=== PATIENT | male | born 1975 | race Caucasian/White ===

== ENCOUNTER 2018-08-13 18:40 | Emergency (ER) | payer MEDICARE ==
[~2018-08-13] VITALS: Ht 175.3 cm; Wt 65.3 kg
[2018-08-13 21:09] VITALS: BP 122/79
--- OUTSIDE RECORDS SUMMARY | 2018-08-18 13:14 | XMS REPORT ---
Author Author [facility] Address Unknown Phone Unavailable Care Team Providers Care Fuse Assembler Name Role Phone JENNIFER TONY Unavailable Unavailable Problems This patient has no known problems. Allergies, Adverse Reactions, Alerts This patient has no known allergies or adverse reactions. Medications This patient has no known medications. Results Test Description Test Time Test Comments Text Results Atomic Results Result Comments CT, CTA ABDOMEN 2017-09-15 17:44:00 Reason for Exam:->assess iliac vessels Addendum BeginsREPORT STATUS:A Addendum: September 15, 2017 at 1745 hours I have reviewed the CT images for this study and I concur with the nonvascular imaging findings as dictated. Signed: Danny Luevano MDRepkate Verified Date/Time: 09/15/2017 17:44:11 Reading Location: [place] [address] Angio Body Reading RoomAddendum EndsFINAL REPORT CT angiography of the abdominal aorta and pelvic arteries, 15 September 2017 INDICATION: This is a 41 year old male with end-stage renal disease presents for pretransplant assessment. This study is performed in an attempt to avoid an invasive procedure. TECHNIQUE: Spiral acquisition before and during intravenous contrast administration using a Meche multidetector CT scanner. Images were obtained before and during the dynamic passage of intravenous contrast material. Multi- planar 3-D volume-rendering reconstruction was performed using an independent workstation interactively by the interpreting physician as well as the 3-D specialist for optimal visualisation of the abdominal aorta, pelvic arteries, and its proximal branches. Please refer to the contrast sheet scanned in the EPIC system for the amount and route of contrast given. This exam was performed according to our departmental dose-optimisation programme, which includes automated exposure control, adjustment of the mA and/or kV according to patient size and/or use of iterative reconstruction technique. Dose modulation, iterative reconstruction, and/or weight based adjustment of the mA/kV was utilized to reduce the radiation dose to as low as reasonably achievable. FINDINGS: VASCULAR: Coronary artery calcification is identified in the distal RCA, where visualised. The abdominal aorta is normal in course, calibre and contour. Minimal focal calcific atherosclerosis is identified. No aneurysmal dilation is seen. There is no evidence of acute aortic pathology, specifically, there is no dissection, intramural hematoma, or contained rupture. Quantitative dimensions of the abdominal aorta are as follows: 1.9 cm at the mesenteric segment; 1.7 cm at the renal segment,; and 1.5 cm at the aortic bifurcation. The common iliac, external iliac, common femoral, and the visualized superficial femoral arteries, bilaterally, are widely patent, with no obvious calcific atherosclerosis identified. Manager Of Case dimensions of the left and the right external iliac arteries are 6 and 6 mm, respectively. Similarly, the associated pelvic veins are patent with no venous thrombosis identified. Manager Of Case dimensions of the left and the right external iliac veins are 7 and 6 mm, respectively. The vein appears to be somewhat small in size, that could be due to the effect of the distended bladder. No stenosis is seen and no venous thrombosis is identified. There are single left and right renal arteries that are widely patent. The coeliac axis, SMA, and TUSHAR are widely patent. There single left and right renal veins that drain normally into inferior vena cava. NON-VASCULAR: The lung bases are unremarkable. No pleural effusion is identified. In the abdomen, the liver and spleen appears unremarkable. The liver edge is smooth. No abnormal enhancing structure is identified. The gallbladder appears unremarkable. The adrenal glands are not enlarged. The pancreas have no gross abnormality identified. Patient has end-stage renal disease status. No hydronephrosis or perirenal fluid collection is seen. Renal vascular calcification is identified in both renal pelvis. Bowel is not well assessed by CT angiography as enteric contrast is not given. No obvious bowel dilation is identified. The prostate is prominent. The bladder appears to be somewhat distended. No free air free fluid seen in the abdomen and pelvis. No significant retroperitoneal adenopathy is identified. Some scattered para-aortic and mesenteric lymph nodes are seen, , that are small in size, considered nonspecific in nature. Some superficial venous collaterals are seen, subcutaneously, for example in the right-sided of the abdomen suggesting a degree of venous obstruction, more superiorly, incompletely assessed. There is no significant retroperitoneal adenopathy. No acute bony pathology is identif ied. CONCLUSIONS: 1. The abdominal aorta is normal in course, calibre and contour. There is no evidence of acute aortic pathology, specifically, there is no dissection, intramural hematoma, or contained rupture. Quantitative dimension of the abdominal aorta are as noted. The pelvic arteries and veins are widely patent with no arterial stenosis or venous thrombosis identified. Manager Of Case dimensions of the left and the right external iliac arteries and veins are as described above. 2. Patent mesenteric and renal arteries. 3. Other findings as described above. 4. An addendum will be dictated regarding the non-vascular findings by the [employer] Director Radiologist. Signed: Jesse Gabrieleport Verified Date/Time: 09/15/2017 15:12:38 Reading Location: [place] [address] Cardiology MRI LT BLOOD, STOOL 2017-06-17 21:29:00 FECAL OCCULT BLOOD (BEAKER) (test ehtj=564) Negative Negative FLOW PRA CLASS I AND [id number] 07:19:00* Test Item Value Reference Range Comments DATE OF SERUM (BEAKER) (test eggi=8237) 201821 SERUM # (BEAKER) (test mygk=9707) [id number] FLOW PRA CLASS I AND II (test cxip=0324) See Scanned Report HLA [id number] 12:13:00* Test Item Value Reference Range Comments HLA RESULT (BEAKER) (test vuzp=2633) See Scanned Report HLA-A AG1 (BEAKER) (test pach=6600) HLA-A AG2 (BEAKER) (test imeb=1862) HLA-B AG1 (BEAKER) (test rkfc=4483) HLA-B AG2 (BEAKER) (test eopt=4377) HLA-C AG1 (BEAKER) (test yhcv=4378) HLA-C AG2 (BEAKER) (test yeaf=3584) HLA-DR AG1 (BEAKER) (test basu=8483) HLA-DR AG2 (BEAKER) (test xbbr=6170) HLA-DQ AG1 (BEAKER) (test krbl=9914) HLA-DQ AG2 (BEAKER) (test wmuu=7317) HLA-DRW (BEAKER) (test wmjx=4816) CYTOMEGALOVIRUS ANTIBODY, [id number] 01:35:00* Test Item Value Reference Range Comments CYTOMEGALOVIRUS IGG ANTIBODY (BEAKER) (test cvtc=414) Positive CYTOMEGALOVIRUS ANTIBODY, [id number] 01:35:00* Test Item Value Reference Range Comments CYTOMEGALOVIRUS IGM ANTIBODY (BEAKER) (test feam=070) Negative EBV-VCA ANTIBODY, [id number] 01:35:00* Test Item Value Reference Range Comments RUSSELL-MORILLO VCA IGG (BEAKER) (test eefs=829) Positive EBV-VCA ANTIBODY, [id number] 01:35:00* Test Item Value Reference Range Comments RUSSELL-MORILLO VCA IGM (BEAKER) (test thvr=493) Negative VARICELLA ZOSTER ANTIBODY, [id number] 01:13:00* Test Item Value Reference Range Comments VARICELLA ZOSTER IGG (AL) (BEAKER) (test zmge=1546) 3.8 Al VARICELLA ZOSTER RESULT INTERPRETATIONS: <=0.8 Al Nonreactive: Presumed non-immune to VZV 0.9-1.0 Al Equivocal >=1.1 Al Reactive: Presumed immune to [id number] 02:36:00* Test Item Value Reference Range Comments RPR SCREEN (BEAKER) (test xxud=028) Nonreactive Nonreactive HEMOGLOBIN [id number] 15:05:00* Test Item Value Reference Range Comments HEMOGLOBIN A1C (BEAKER) (test sjfp=315) 7.0 % 4.3-6.1 HEPATITIS B SURFACE [id number] 11:40:00* Test Item Value Reference Range Comments HEPATITIS B SURFACE ANTIBODY (BEAKER) (test mjnn=663) < mIU/mL <8.0 HEPATITIS B SURFACE [id number] 11:33:00* Test Item Value Reference Range Comments HEPATITIS B SURFACE ANTIGEN (2) (BEAKER) (test quyh=3042) Nonreactive Nonreactive HEPATITIS B CORE ANTIBODY, [id number] 11:33:00* Test Item Value Reference Range Comments HEPATITIS B CORE IGM ANTIBODY (BEAKER) (test dtua=197) Nonreactive Nonreactive HEPATITIS C [id number] 11:33:00* Test Item Value Reference Range Comments HEPATITIS C ANTIBODY (BEAKER) (test kdib=341) Nonreactive Nonreactive HIV-1 ANTIGEN WITH HIV-1/2 [id number] 11:33:00* Test Item Value Reference Range Comments HIV-1 ANTIGEN WITH HIV 1\T\2 ANTIBODY (2) (BEAKER) (test ogjj=4940) Nonreactive Nonreactive COMPREHENSIVE METABOLIC [id number] 11:22:00* Test Item Value Reference Range Comments TOTAL PROTEIN (BEAKER) (test yzah=285) 7.7 gm/dL 6.0-8.3 ALBUMIN (BEAKER) (test rxgd=7875) 4.7 g/dL 3.5-5.0 ALKALINE PHOSPHATASE (BEAKER) (test yzyj=012) 73 U/L 40-150 BILIRUBIN TOTAL (BEAKER) (test xdos=233) 0.7 mg/dL 0.2-1.2 SODIUM (BEAKER) (test dhxw=979) 138 meq/L 136-145 POTASSIUM (BEAKER) (test xpkz=173) 4.4 meq/L 3.5-5.1 CHLORIDE (BEAKER) (test zrjk=833) 97 meq/L 98-107 CO2 (BEAKER) (test gkld=635) 30 meq/L 22-29 BLOOD UREA NITROGEN (BEAKER) (test cpbo=574) 39 mg/dL 7-21 CREATININE (BEAKER) (test nmbg=187) 7.46 mg/dL 0.57-1.25 GLUCOSE RANDOM (BEAKER) (test lovm=552) 123 mg/dL 70-105 CALCIUM (BEAKER) (test zrbw=351) 9.0 mg/dL 8.4-10.2 AST (SGOT) (BEAKER) (test fntr=946) 15 U/L 5-34 ALT (SGPT) (BEAKER) (test voqi=925) 9 U/L 6-55 EGFR (BEAKER) (test wngi=3875) 8 mL/min/1.73 sq m ESTIMATED GFR IS NOT ACCURATE CREATININE CLEARANCE IN PREDICTING GLOMERULAR FILTRATION RATE. ESTIMATED GFR IS NOT APPLICABLE FOR DIALYSIS PATIENTS. URIC [id number] 11:18:00* Test Item Value Reference Range Comments URIC ACID (BEAKER) (test stpo=185) 4.1 mg/dL 2.6-7.2 [id number] 11:18:00* Test Item Value Reference Range Comments PHOSPHORUS (BEAKER) (test mpwg=170) 5.1 mg/dL 2.3-4.7 LIPID [id number] 11:18:00* Test Item Value Reference Range Comments TRIGLYCERIDES (BEAKER) (test sjai=451) 122 mg/dL CHOLESTEROL (BEAKER) (test bsun=386) 217 mg/dL HDL CHOLESTEROL (BEAKER) (test zwyr=477) 48 mg/dL LDL CHOLESTEROL CALCULATED (BEAKER) (test weeo=107) 145 mg/dL Triglyceride Reference Range: Low Risk <150 Borderline 150-199 High Risk 200-499 Very High Risk >=500Cholesterol Reference Range: Low Risk <200 Borderline 200-239 High Risk >240HDL Cholesterol Reference Range: Low Risk >=60 High Risk <40LDL Cholesterol Reference Range: Optimal <100 Near Optimal 100-129 Borderline 130-159 High 160-189 Very High >=190 GAMMA GLUTAMYL TRANSFERASE (GGT)2017-05-28 11:18:00* Test Item Value Reference Range Comments GAMMA GLUTAMYL TRANSFERASE (CROWAKER) (test oztp=351) 12 U/L 9-64 LACTATE DEHYDROGENASE (LDH)2017-05-28 11:18:00* Test Item Value Reference Range Comments LACTATE DEHYDROGENASE (CROWAKER) (test fsqn=739) 214 U/L 125-220 PTH, [id number] 11:12:00* Test Item Value Reference Range Comments PARATHYROID HORMONE INTACT (CROWAKER) (test xvob=115) 202.4 pg/mL 8.5-72.5 Effective 09/20/2014: Reference Range ChangeNew: 8.5-72.5 Previous: 15.0-90.0 [id number] 10:53:00* Test Item Value Reference Range Comments PROTIME (BEAKER) (test wcdx=063) 14.0 seconds 11.7-14.7 INR (BEAKER) (test ouvq=195) 1.1 <=5.9 PARTIAL THROMBOPLASTIN TIME (BEAKER) (test xyhp=173) 32.0 seconds 22.5-36.0 RECOMMENDED COUMADIN/WARFARIN INR THERAPY RANGESSTANDARD DOSE: 2.0 - 3.0 Inclu [place]: PROPHYLAXIS for venous thrombosis, systemic embolization; TREATMENT for brandt ous thrombosis and/or pulmonary embolus.HIGH RISK: Target INR is 2.5-3.5 for pat ients with mechanical heart valves.CBC W/PLT COUNT & AUTO [id number] 10:50:00* Test Item Value Reference Range Comments WHITE BLOOD CELL COUNT (BEAKER) (test ynxg=735) 6.8 K/ L 3.5-10.5 RED BLOOD CELL COUNT (BEAKER) (test vads=211) 3.63 M/ L 4.63-6.08 HEMOGLOBIN (BEAKER) (test vqwp=252) 11.7 GM/DL 13.7-17.5 HEMATOCRIT (BEAKER) (test skdi=816) 35.9 % 40.1-51.0 MEAN CORPUSCULAR VOLUME (BEAKER) (test oslh=784) 98.9 fL 79.0-92.2 MEAN CORPUSCULAR HEMOGLOBIN (BEAKER) (test vfyz=465) 32.2 pg 25.7-32.2 MEAN CORPUSCULAR HEMOGLOBIN CONC (BEAKER) (test djlk=916) 32.6 GM/DL 32.3-36.5 RED CELL DISTRIBUTION WIDTH (BEAKER) (test trgx=115) 13.8 % 11.6-14.4 PLATELET COUNT (BEAKER) (test jwcg=039) 170 K/CU MM 150-450 MEAN PLATELET VOLUME (BEAKER) (test xebo=923) 12.6 fL 9.4-12.4 NUCLEATED RED BLOOD CELLS (BEAKER) (test ylpm=595) 0 /100 WBC 0-0 NEUTROPHILS RELATIVE PERCENT (BEAKER) (test aurg=232) 57 % LYMPHOCYTES RELATIVE PERCENT (BEAKER) (test wvql=494) 31 % MONOCYTES RELATIVE PERCENT (BEAKER) (test btns=567) 8 % EOSINOPHILS RELATIVE PERCENT (BEAKER) (test ovsp=473) 4 % BASOPHILS RELATIVE PERCENT (BEAKER) (test hytf=865) 1 % NEUTROPHILS ABSOLUTE COUNT (BEAKER) (test wwdc=953) 3.84 K/ L 1.78-5.38 LYMPHOCYTES ABSOLUTE COUNT (BEAKER) (test eyey=543) 2.08 K/ L 1.32-3.57 MONOCYTES ABSOLUTE COUNT (BEAKER) (test kbjx=216) 0.51 K/ L 0.30-0.82 EOSINOPHILS ABSOLUTE COUNT (BEAKER) (test zmcn=899) 0.28 K/ L 0.04-0.54 BASOPHILS ABSOLUTE COUNT (BEAKER) (test lfwy=751) 0.05 K/ L 0.01-0.08 IMMATURE GRANULOCYTES-RELATIVE PERCENT (JOHN PAUL) (test gyaj=6054) 0 % 0-1
--- OUTSIDE RECORDS SUMMARY | 2018-08-18 13:14 | XMS REPORT | Clinical Summary ---
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 Disp. Refills Start End Date Status Date sevelamer (RENVELA) 800 Take 800 mg by mouth 3 Active mg tablet (three) times daily with meals 3 tabs with meals.. atorvastatin (LIPITOR) 20 Take 40 mg by mouth daily Active MG tablet . amLODIPine (NORVASC) 10 Take 10 mg by mouth Active MG tablet daily. aspirin 81 MG EC tablet Take 81 mg by mouth Active daily. insulin aspart (NOVOLOG) Inject 6 Units Active 100 unit/mL injection subcutaneously 2 (two) times daily before meals VIA PUMP . carvedilol (COREG) 12.5 Take 12.5 mg by mouth 2 Active MG tablet (two) times daily with breakfast and dinner. escitalopram oxalate Take 30 mg by mouth daily Active (LEXAPRO) 10 MG tablet . lisinopril Take 10 mg by mouth Active (PRINIVIL,ZESTRIL) 10 MG daily. tablet insulin detemir (LEVEMIR) Inject 10 Units Active 100 unit/mL injection subcutaneously nightly. melatonin 3 mg Tab tablet Take 3 mg by mouth Active nightly. multivitamin with Take 1 tablet by mouth 10/21/20 Discontin minerals tablet daily. 17 ued Active Problems Problem Noted Date Stroke (HCC) 10/21/2017 Last Assessment & Plan: Stroke x 2 - the first one associated with a seizure and loss of consciousness, and the second one with left hemiparesis a day after bypass surgery. He will need neurology clearance prior to transplant. Diabetic nephropathy associated with type 2 diabetes mellitus (HCC) 06/25/2017 Last Assessment & Plan: Continue follow up with primary care for management and tight glucose control. Essential hypertension 06/25/2017 Last Assessment & Plan: Continue follow up with nephrology for adjustments. Coronary artery disease involving lovelock coronary artery of lovelock heart 06/25/2017 without angina pectoris S/P CABG x 2 06/25/2017 H/O: stroke with residual effects 06/25/2017 Proliferative diabetic retinopathy of both eyes without macular edema 06/25/2017 associated with type 2 diabetes mellitus (HCC) H/O tonic-clonic seizures 06/25/2017 Hyperlipidemia, unspecified hyperlipidemia type 06/25/2017 ESRD (end stage renal disease) on dialysis (HCC) 04/29/2017 Pre-transplant evaluation for chronic kidney disease 04/29/2017 Last Assessment & Plan: He is an acceptable candidate for kidney transplant pending necessary imaging/testing prior to transplant. Hypertensive renal disease 04/29/2017 Encounters Date Type Specialty Care Team Description 12/19/2017 [facility] Charge Transplant Prasad Syed Visit MD Todd Provider, [facility] Registry Generic 12/19/2017 Orders Only Transplant Kalyn Garza RN Patient awaiting renal transplant (Primary Dx) 12/19/2017 Documentation Transplant Kasey Johnson RN 12/18/2017 Abstract Transplant Elizabeth Estrada RN 12/18/2017 Documentation Transplant Elizabeth Estrada RN 12/15/2017 Documentation Transplant Elizabeth Estrada RN 11/12/2017 Telephone Transplant Elizabeth Estrada RN Kidney Transplant Pre-evaluation 10/21/2017 Evaluation Transplant Prasad Syed Pre-transplant evaluation MD Todd for chronic kidney Yaniv Murillo Aba, disease (Primary MD Dx);Diabetic nephropathy associated with type 2 diabetes mellitus (HCC);Essential hypertension 10/21/2017 Telephone Transplant Elizabeth Estrada RN Kidney Transplant Pre-evaluation 10/08/2017 Telephone Transplant Emma Benjamin Appointment (Unable to leave a message for the patient to call back about his surgeon appt on 10/21/17 he has no voicemail. Called his sister Yumiko and she' s aware of the appt date and per Yumiko she will inform the patient about the appt. ); Appointment (Spoke with Veronica at the hd unit and per Veronica she will give the pt his itinerary once she receives the fax. The itinerary has been faxed to the hd unit and mailed to the patient) 09/15/2017 Hospital Radiology Prasad Syed Pre-transplant evaluation Encounter MD Todd for chronic kidney disease;ESRD (end stage renal disease) on dialysis (HCC);Coronary artery disease involving lovelock heart without angina pectoris, unspecified vessel or lesion type;Hypertensive renal disease, stage 5 chronic kidney disease or end stage renal disease 09/08/2017 Outside Orders Prasad Syed MD 08/14/2017 Telephone Transplant Emma Benjamin Appointment (Per Mrs. Thrasher please reschedule appt they will be able to make it to the appt on 09/02/17 her spouse will need to schedule to be off and they have to take the kids to school. Mrs. Thrasher is aware of the new appt date and is aware of the preps for the procedure and also aware to check in at 7:30 am and to come to the kidney clinic to see the surgeons after the testing); Appointment (Mrs. Thrasher requested to have the itinerary emailed to [email or web address]) after 08/12/2017 Family History Medical History Relation Name Comments Diabetes Mother Heart disease Mother S/p bypass Hypertension Mother Kidney disease Mother Was on dialysis - and 63 Diabetes Sister Kidney disease Sister S/p kidney transplant (DDKT) at [facility] in 2007 Relation Name Status Comments Father Alive Mother Sister Alive Social History Tobacco Use Types Packs/Day Years Used Date Never Smoker Smokeless Tobacco: Never Used Alcohol Use Drinks/Week oz/Week Comments No Sex Assigned at Date Recorded Not on file Last Filed Vital Signs Vital Sign Reading Time Taken Blood Pressure 168/86 10/21/2017 11:19 AM STAMP CLERK Pulse 87 10/21/2017 11:19 AM STAMP CLERK Temperature 35.8 C (96.5 F) 10/21/2017 11:19 AM STAMP CLERK Respiratory Rate 18 10/21/2017 11:19 AM STAMP CLERK Oxygen Saturation - - Inhaled Oxygen - - Concentration Weight 77.2 kg (170 lb 4.8 oz) 10/21/2017 11:19 AM STAMP CLERK Height 172.7 cm (5' 8") 10/21/2017 11:19 AM STAMP CLERK Body Mass Index 25.89 10/21/2017 11:19 AM STAMP CLERK Plan of Treatment Health Maintenance Due Date Last Done Comments INFLUENZA VACCINE 08/03/2018 Results * Flow PRA Class II (06/16/2018 11:20 AM) Only the most recent of 3 results within the time period is included. Component Value Ref Range Flow Class II Percent 0 Positive Flow Class Report Comments Specimen Performing Laboratory Blood [facility] Issac Pratt, [place]: [id number], CLIA#[id number] CAP#[id number] [facility] [address] Narrative Disclaimer: This test was developed and its performance characteristics determined by the [facility]. It has not been cleared or approved by the U.S. Food and Drug Administration. The FDA has determined that such clearance or approval is not necessary. This test is used for clinical purposes. It should not be regarded as investigational or for research. This laboratory is certified under the Clinical Laboratory Improvement Amendments of 1988 (CLIA-88) as qualified to perform high complexity clinical laboratory testing. * Flow PRA Class I (06/16/2018 11:20 AM) Only the most recent of 3 results within the time period is included. Component Value Ref Range Flow Class I Percent 0 Positive Flow Class Report Comments Specimen Performing Laboratory Blood [facility] Issac Pratt, [place]: [id number], CLIA#[id number] CAP#[id number] [facility] [address] Narrative Disclaimer: This test was developed and its performance characteristics determined by the [facility]. It has not been cleared or approved by the U.S. Food and Drug Administration. The FDA has determined that such clearance or approval is not necessary. This test is used for clinical purposes. It should not be regarded as investigational or for research. This laboratory is certified under the Clinical Laboratory Improvement Amendments of 1988 (CLIA-88) as qualified to perform high complexity clinical laboratory testing. * CTA abdomen & pelvis (09/15/2017 2:56 PM) Specimen Performing Laboratory [facility] Narrative Addendum Begins REPORT STATUS:A Addendum: September 15, 2017 at 1745 hours I have reviewed the CT images for this study and I concur with the nonvascular imaging findings as dictated. Signed: Danny Liang MD Report Verified Date/Time:09/15/2017 17:44:11 Reading Location: [facility] P048 Angio Body Reading Room Addendum Ends FINAL REPORT CT angiography of the abdominal aorta [...] during the dynamic passage of intravenous contrast material.Multi-planar 3-D volume-rendering reconstruction was performed using an [...] patent, with no obvious calcific atherosclerosis identified. [facility] Special[facility] dimensions of the left and the right external iliac arteries are 6 and 6 mm, respectively. Similarly, the associated pelvic veins are patent with no venous thrombosis identified.[facility] It Specialist dimensions of the left and the right [...] coeliac axis, SMA, and TUSHAR are widely patent.There single left and right renal veins that [...] retroperitoneal adenopathy. No acute bony pathology is identified. CONCLUSIONS: 1.The abdominal aorta is normal in course, calibre and contour. There is no evidence of acute aortic pathology, specifically, there is no dissection, intramural hematoma, or contained rupture. Quantitative dimension of the abdominal aorta are as noted. The pelvic arteries and veins are widely patent with no arterial stenosis or venous thrombosis identified. Health It Specialist dimensions of the left and the right external iliac arteries and veins are as described above. 2.Patent mesenteric and renal arteries. 3.Other findings as described above. 4.An addendum will be dictated regarding the non-vascular findings by the Excellence Consultant Radiologist. Signed: Jesse Gabriel MD Report Verified Date/Time:09/15/2017 15:12:38 Reading Location: [place] [id number] Cardiology MRI Procedure Note Interface, External Ris In - 09/16/2017 10:23 PM STAMP CLERK Addendum Begins REPORT STATUS:A Addendum: September 15, 2017 at 1745 hours I have reviewed the CT images for this study and I concur with the nonvascular imaging findings as dictated. Signed: Danny Liang MD Report Verified Date/Time: 09/15/2017 17:44:11 Reading Location: [facility] P048 Angio Body Reading Room Addendum Ends FINAL REPORT CT angiography of the abdominal aorta [...] the dynamic passage of intravenous contrast material. Multi-planar 3-D volume-rendering reconstruction was performed using an [...] patent, with no obvious calcific atherosclerosis identified. Health It Specialist dimensions of the left and the right external iliac arteries are 6 and 6 mm, respectively. Similarly, the associated pelvic veins are patent with no venous thrombosis identified. Health It Specialist dimensions of the left and the right [...] retroperitoneal adenopathy. No acute bony pathology is identified. CONCLUSIONS: 1. The abdominal aorta is normal in course, calibre and contour. There is no evidence of acute aortic pathology, specifically, there is no dissection, intramural hematoma, or contained rupture. Quantitative dimension of the abdominal aorta are as noted. The pelvic arteries and veins are widely patent with no arterial stenosis or venous thrombosis identified. Health It Specialist dimensions of the left and the right external iliac arteries and veins are as described above. 2. Patent mesenteric and renal arteries. 3. Other findings as described above. 4. An addendum will be dictated regarding the non-vascular findings by the Excellence Consultant Radiologist. Signed: Jesse Gabriel MD Report Verified Date/Time: 09/15/2017 15:12:38 Reading Location: [place] [id number] Cardiology MRI after 08/12/2017
== END 2018-08-13 21:45 | disposition home or self-care (01) ==
LOC: FSED 18:40
DX: R11.2 Nausea with vomiting, unspecified (principal); R19.7 Diarrhea, unspecified; I10 Essential (primary) hypertension; E11.9 Type 2 diabetes mellitus without complications; E78.5 Hyperlipidemia, unspecified; E03.9 Hypothyroidism, unspecified; I69.898 Other sequelae of other cerebrovascular disease
CPT/HCPCS: 99283

== ENCOUNTER 2022-11-19 09:23 | Emergency (ER) | payer MEDICARE ==
[~2022-11-19] VITALS: Ht 175.3 cm; Wt 65.3 kg
[2022-11-19] MEDS ORDERED: ONDANSETRON HCL INJ 2MG/ML 2ML 2 MG/ML VIAL IV STA (10:11)
[2022-11-19] MEDS ORDERED: SODIUM CHLORIDE 0.9% 500ML 500 ML IV ONE (10:15)
[2022-11-19] MEDS ORDERED: ACETAMINOPHEN 325 MG TAB PO ONE (10:30)
[2022-11-19 10:37] LABS: BASOPHILS % 0.4 % (0.0-1.0); EOSINOPHILS % 0.4 % (0.0-6.0); HEMATOCRIT 42.6 % (38.2-49.6); HEMOGLOBIN 13.4 g/dL (14.0-18.0); LYMPHOCYTES # (AUTO) 0.5 (1.0-3.2); LYMPHOCYTES % 4.8 % (18.0-39.1); MEAN CORPUSCULAR HEMOGLOBIN 34.9 pg (28-32); MEAN CORPUSCULAR HGB CONC 31.5 g/dL (31-35); MEAN CORPUSCULAR VOLUME 110.9 fL (81-99); MONOCYTES # (AUTO) 1.2 (0.2-0.8); NEUTROPHILS # (AUTO) 7.7 (2.1-6.9); NEUTROPHILS % 81.2 % (38.7-80.0); PLATELET COUNT 142 x10e3/uL (140-360); RED BLOOD COUNT 3.84 x10e6/uL (4.3-5.7); RED CELL DISTRIBUTION WIDTH 12.2 % (11.7-14.4)
[2022-11-19 10:52] LABS: INR 1.1; PROTHROMBIN TIME 14.4 seconds (11.9-14.5)
[2022-11-19 10:54] LABS: PARTIAL THROMBOPLASTIN TIME 28.9 seconds (23.8-35.5)
[2022-11-19 11:08] LABS: ALBUMIN 3.9 g/dL (3.5-5.0); ANION GAP 22.6 mmol/L (8-16); CALCIUM 8.8 mg/dL (8.4-10.2); CREATININE, SERUM 8.44 mg/dL (0.72-1.25); MAGNESIUM 2.4 MG/DL (1.3-2.1); POTASSIUM 4.6 mmol/L (3.5-5.1)
[2022-11-19] MEDS ORDERED: ONDANSETRON ODT4 MG PO (12:05)
[2022-11-19 12:10] LABS: CREATINE KINASE MB 0.3 ng/mL (0-5.0)
== END 2022-11-19 12:40 | disposition home or self-care (01) ==
LOC: ER 09:26
DX: R50.9 Fever, unspecified (principal); U07.1 COVID-19; I12.0 Hypertensive chronic kidney disease with stage 5 chronic kidney disease or end stage renal disease; E11.22 Type 2 diabetes mellitus with diabetic chronic kidney disease; E11.65 Type 2 diabetes mellitus with hyperglycemia; N18.6 End stage renal disease; Z99.2 Dependence on renal dialysis; R94.31 Abnormal electrocardiogram [ECG] [EKG]; Z95.1 Presence of aortocoronary bypass graft
CPT/HCPCS: 36415; 70450; 71045; 80053; 82550; 82553; 83735; 84484; 85025; 85610; 85730; 87040; 93005; 99283; J2405; J7040; U0002